=== PATIENT | male | born 1965 | race American Indian/Alaskan Native ===

== ENCOUNTER 2017-10-02 17:32 | Observation (INO) | payer SELFPAY ==
[2017-10-02] MEDS ORDERED: Sodium Chloride 0.9% 1,000 ML IV STA (18:10)
--- NOTE | 2017-10-02 18:30 | ED PDOC ---
HPI: General Adult Time Seen by Provider: 10/02/17 17:40 Chief Complaint (Nursing): Medical Clearance Chief Complaint (Provider): Medical Clearance History Per: Patient History/Exam Limitations: no limitations Onset/Duration Of Symptoms: Days (x1) Current Symptoms Are (Timing): Still Present Additional Complaint(s): 52 year old male with a past medical history of a cardiac stent brought to the ED for medical and psychiatric clearance for incarceration. Patient presents saying he felt dizziness and nausea x1 day. Denies fever, shortness of breath, or vomiting. PMD: None provided Past Medical History Reviewed: Historical Data, Nursing Documentation, Vital Signs Vital Signs: Last Vital Signs Temp 98.6 F 10/03/17 12:00 Pulse 76 10/03/17 12:00 Resp 18 10/03/17 12:00 BP 144/89 10/03/17 12:00 Pulse Ox 98 10/03/17 12:00 - Medical History PMH: Bipolar Disorder, HIV, HTN - Surgical History Surgical History: Coronary Stent - Family History Family History: States: Unknown Family Hx - Social History Current smoker - smoking cessation education provided: Yes Alcohol: Other ("a little bit") Drugs: Opiates (heroin daily) - Home Medications Home Medications: Ambulatory Orders Medication Instructions Recorded Aspirin [Aspirin Chewable] 81 mg PO DAILY #30 chew 10/03/17 Atorvastatin [Lipitor] 20 mg PO HS #30 tab 10/03/17 Clopidogrel [Plavix] 75 mg PO DAILY #30 tab 10/03/17 chlordiazePOXIDE [Librium] 10 mg PO Q6 #12 cap 10/03/17 cloNIDine [Catapres] 0.1 mg PO Q8 #30 tab 10/03/17 - Allergies Allergies/Adverse Reactions: Allergies Allergy/AdvReac Type Severity Reaction Status Date / Time No Known Allergies Allergy Verified 10/02/17 17:34 Review of Systems ROS Statement: Except As Marked, All Systems Reviewed And Found Negative Physical Exam - Physical Exam Appears: Positive for: Non-toxic, No Acute Distress Cardiovascular/Chest: Positive for: Regular Rate, Rhythm. Negative for: Murmur Respiratory: Positive for: Normal Breath Sounds. Negative for: Respiratory Distress Gastrointestinal/Abdominal: Positive for: Normal Exam, Bowel Sounds, Soft. Negative for: Tenderness - Laboratory Results Result Diagrams: 10/02/17 18:40 03/16/18 05:40 - ECG O2 Sat by Pulse Oximetry: 98 (RA) Pulse Ox Interpretation: Normal Medical Decision Making Medical Decision Making: Time: 18:09 Plan: --EKG --Labs --Psychiatric clearance Time: 19:00 Patient signed out to Dr. Cabral pending medical and psychiatric clearance. Scribe Attestation: Documented by Jayson Cuba, acting as a scribe for Mellissa Laws MD. Provider Scribe Attestation: All medical record entries made by the Scribe were at my direction and personally dictated by me. I have reviewed the chart and agree that the record accurately reflects my personal performance of the history, physical exam, medical decision making, and the department course for this patient. I have also personally directed, reviewed, and agree with the discharge instructions and disposition. Disposition - Clinical Impression Clinical Impression: Chest pain, Dizziness - Patient ED Disposition Is Patient to be Admitted: Transfer of Care Counseled Patient/Family Regarding: Studies Performed, Diagnosis - Disposition Disposition: Transfer of Care Disposition Time: 19:00 Condition: IMPROVED Patient Signed Over To: Ashok Cabral Handoff Comments: pending medical and psychiatric clearance
[2017-10-02 18:59] LABS: BASO % 1.6 % (0.0-2.0); EOS # 0.1 K/uL (0.0-0.7); EOS % 2.7 % (0.0-4.0); HEMOGLOBIN 15.3 g/dL (12.0-18.0); LYMPH # 1.1 K/uL (1.0-4.3); LYMPH % 48.1 % (20.0-40.0); MEAN CELL VOLUME 92.1 fl (80.0-94.0); MEAN CORPUSCULAR HEMOGLOBIN 30.6 pg (27.0-31.0); MEAN CORPUSCULAR HGB CONC 33.2 g/dL (33.0-37.0); MEAN PLATELET VOLUME 8.4 fl (7.2-11.7); MONO # 0.2 K/uL (0.0-0.8); MONO % 8.4 % (0.0-10.0); NEUT # 0.9 K/uL (1.8-7.0); NEUT % 39.2 % (50.0-75.0); NRBC % 0.6 % (0.0-0.0); RBC 5.02 Mil/uL (4.40-5.90); WHITE BLOOD COUNT 2.4 K/uL (4.8-10.8)
[2017-10-02 19:09] LABS: ALBUMIN 3.9 g/dL (3.5-5.0); ALT/SGPT 38 U/L (21-72); AST/SGOT 51 U/L (17-59); BLOOD UREA NITROGEN 12 mg/dl (9-20); CALCIUM 9.3 mg/dL (8.4-10.2); GFR AFRICAN-AMERICAN > 60; GFR NON-AFRICAN AMERICAN > 60
--- NOTE | 2017-10-02 19:19 | ED PDOC ---
- Laboratory Results Result Diagrams: 10/02/17 18:40 10/02/17 18:40 - ECG O2 Sat by Pulse Oximetry: 98 (RA) Medical Decision Making Medical Decision Making: Time: 19:00 Patient signed over to me by Dr. Laws pending medical and psychiatric evaluation. Time: 20:30 Workup negative, upon reassessment of patient, he is complaining of "a little" chest pain and shortness of breath. Patient admits that he is not taking his plavix or any of his medications because he cannot afford them. Given significant cardiac history and risk factors, will place in OBS for continuous cardiac monitoring, repeat biomarkers, and cardiology consultation as needed. Scribe Attestation: Documented by Jayson Cbua, acting as a scribe for Ashok Cabral MD. Provider Scribe Attestation: All medical record entries made by the Scribe were at my direction and personally dictated by me. I have reviewed the chart and agree that the record accurately reflects my personal performance of the history, physical exam, medical decision making, and the department course for this patient. I have also personally directed, reviewed, and agree with the discharge instructions and disposition. Disposition - Clinical Impression Clinical Impression: Chest pain, Dizziness - POA Present On Arrival: None - Disposition Disposition: Hospitalized as Observation Patient Disposition Time: 22:00 Condition: FAIR
--- NOTE | 2017-10-02 22:49 | CP.PCM.HP ---
History of Present Illness - History of Present Illness History of Present Illness: CC: chest pain HPI: 52 year old male PMH [place] 2 years ago with 2 stents at [facility], history of heroin and ETOH abuse, presents to ED for both medical and psychiatric clearance for incarceration. Patient complained of chest pain and feelings of shakiness. Patient describes chest pain as moderate to severe, "pushing-like" pain and likens pain to "when I had my heart attack", not associated with any other symptoms. He also complains of some dyspnea. At time of exam, patient appears extremely comfortable, with a flat affect, does not appear to be in any distress. No acute changes on EKG which demonstrated nonspecific t wave changes and bradycardia 49, however currently pt HR 70. HD stable NAD. ROS: per HPI all other systems reviewed and negative Present on Admission - Present on Admission Any Indicators Present on Admission: No Past Patient History - Past Social History Alcohol: Other ("a little bit") Drugs: Opiates (heroin daily) - CARDIAC Hx Hypertension: Yes - HEMATOLOGICAL/ONCOLOGICAL Hx Human Immunodeficiency Virus (HIV): Yes - PSYCHIATRIC Hx Bipolar Disorder: Yes - SURGICAL HISTORY Hx Coronary Stent: Yes Meds Allergies/Adverse Reactions: Allergies Allergy/AdvReac Type Severity Reaction Status Date / Time No Known Allergies Allergy Verified 10/02/17 17:34 Physical Exam - Constitutional Appears: Non-toxic, No Acute Distress - Head Exam Head Exam: ATRAUMATIC, NORMOCEPHALIC - Eye Exam Eye Exam: EOMI, Normal appearance, PERRL Pupil Exam: NORMAL ACCOMODATION - ENT Exam ENT Exam: Mucous Membranes Moist, Normal Oropharynx - Neck Exam Neck exam: Positive for: Full Rom, Normal Inspection - Respiratory Exam Respiratory Exam: Clear to Auscultation Bilateral, NORMAL BREATHING PATTERN - Cardiovascular Exam Cardiovascular Exam: RRR, +S1, +S2 - GI/Abdominal Exam GI & Abdominal Exam: Normal Bowel Sounds, Soft. absent: Mass, Tenderness - Extremities Exam Extremities exam: Positive for: normal capillary refill, pedal pulses present - Back Exam Back exam: absent: CVA tenderness (L), CVA tenderness (R) - Neurological Exam Neurological exam: Alert, Oriented x3 - Psychiatric Exam Psychiatric exam: Flat Affect, Normal Mood - Skin Skin Exam: Dry, Normal Color, Warm Results - Vital Signs Recent Vital Signs: Last Vital Signs Temp 98.0 F 10/02/17 17:34 Pulse 72 03/15/18 17:34 Resp 16 10/02/17 17:34 BP 167/97 H 10/02/17 21:44 Pulse Ox 98 10/02/17 19:19 - Labs Result Diagrams: 10/02/17 18:40 10/02/17 18:40 Labs: Laboratory Results - last 24 hr 10/02/17 10/02/17 10/02/17 18:40 18:40 20:37 WBC 2.4 L RBC 5.02 Hgb 15.3 Hct 46.2 MCV 92.1 MCH 30.6 MCHC 33.2 RDW 13.0 Plt Count 179 MPV 8.4 Neut % (Auto) 39.2 L Lymph % (Auto) 48.1 H [place] % (Auto) 8.4 Eos % (Auto) 2.7 Baso % (Auto) 1.6 Neut # (Auto) 0.9 L Lymph # (Auto) 1.1 [place] # (Auto) 0.2 Eos # (Auto) 0.1 Baso # (Auto) 0.0 Sodium 139 Potassium 3.5 L Chloride 102 Carbon Dioxide 26 Anion Gap 15 BUN 12 Creatinine 0.5 L Est GFR ( Amer) > 60 Est GFR (Non-Af Amer) > 60 Random Glucose 86 Calcium 9.3 Total Bilirubin 1.2 AST 51 ALT 38 Alkaline Phosphatase 71 Troponin I < 0.0120 Total Protein 7.9 Albumin 3.9 Globulin 4.0 H Albumin/Globulin Ratio 1.0 Alcohol, Quantitative < 10 Assessment & Plan - Assessment and Plan (Free Text) Plan: 52 year old male PMH [place] 2 years ago with 2 stents at [facility], history of heroin and ETOH abuse, presents to ED for both medical and psychiatric clearance for incarceration. Patient complained of chest pain and feelings of shakiness. Patient describes chest pain as moderate to severe, "pushing-like" pain and likens pain to "when I had my heart attack", not associated with any other symptoms. He also complains of some dyspnea. At time of exam, patient appears extremely comfortable, with a flat affect, does not appear to be in any distress. No acute changes on EKG which demonstrated nonspecific t wave changes and bradycardia 49, however currently pt HR 70. HD stable NAD. Chest Pain Repeat EKG in AM Trend enzymes, 1st neg, 2nd MN, 3rd 6AM Carvedilol [Coreg] 6.25 mg PO Q12 Clopidogrel [Plavix] 75 mg PO DAILY Aspirin 81 mg PO DAILY Atorvastatin [Lipitor] 20 mg PO HS History of Heroin and ETOH abuse last use yesterday, drinks 6 pack daily and uses appx 15 grams heroin daily Acetaminophen [Tylenol 325mg tab] 975 mg PO Q6 PRN Ondansetron [Zofran Inj] 4 mg IVP Q6 PRN Loperamide [Imodium] 2 mg PO QID PRN chlordiazePOXIDE [Librium] 10 mg PO Q8 Pantoprazole [Protonix EC Tab] 40 mg PO DAILY cloNIDine [Catapres] 0.1 mg PO Q12 Pending Incarceration Psych consult : Dr. Blas VTE ppx Enoxaparin [Lovenox] 40 mg SC DAILY
[2017-10-03 00:27] VITALS: RESP 18
[2017-10-03 06:16] LABS: BLOOD UREA NITROGEN 13 mg/dl (9-20); CALCIUM 9.1 mg/dL (8.4-10.2); GFR AFRICAN-AMERICAN > 60; GFR NON-AFRICAN AMERICAN > 60; HDL CHOLESTEROL 61 MG/DL (30-70)
[2017-10-03 06:27] LABS: LDL CHOLESTEROL 80 mg/dL (0-129)
[2017-10-03] MEDS ORDERED: Potassium Chloride 20 mEq ER Tab PO ONE (07:38)
--- NOTE | 2017-10-03 07:54 | RAD ---
HISTORY: medical clearance COMPARISON: No prior. FINDINGS: LUNGS: No acute infiltrate is identified bilaterally. There is a rounded density appreciate the mid lateral left lung zone overlying the plane of the anterior left 4th rib potentially representing a nipple shadow. True nodule is not excluded and follow-up nipple marked chest radiograph or chest CT without contrast is advised for additional characterization of the chest. No similar findings in the right chest. PLEURA: No significant pleural effusion identified, no pneumothorax apparent. CARDIOVASCULAR: Normal. OSSEOUS STRUCTURES: No significant abnormalities. VISUALIZED UPPER ABDOMEN: Normal. OTHER FINDINGS: None. IMPRESSION: Nodule versus nipple shadow in the left chest as discussed above. Follow-up nipple marked chest radiograph or noncontrast chest CT is advised for additional characterization. Examination is otherwise unremarkable. PA review assigned.
--- NOTE | 2017-10-03 08:07 | CP.PCM.CON ---
History of Present Illness - History of Present Illness History of Present Illness: 52 year old male PMH [place] 2 years ago with 2 stents at [facility] [place], history of heroin and ETOH abuse, presents to ED for both medical and psychiatric clearance for incarceration Pt claims he has had chest pain x 1 week The pain is @ upper Left chest pinpoint/sharp in nature reproducible with palpation no relation to exertion EKG: Sinus bradycardia Troponin: neg x 3. Past Patient History - Past Medical History & Family History Past Medical History?: Yes - Past Social History Smoking Status: Former Smoker - CARDIAC Hx Cardiac Disorders: Yes Hx Heart Attack: Yes (as per pt) Hx Hypertension: Yes - PULMONARY Hx Respiratory Disorders: No - NEUROLOGICAL Hx Neurological Disorder: No - HEENT Hx HEENT Problems: No - RENAL Hx Chronic Kidney Disease: No - ENDOCRINE/METABOLIC Hx Endocrine Disorders: No - HEMATOLOGICAL/ONCOLOGICAL Hx Blood Disorders: Yes Hx Human Immunodeficiency Virus (HIV): Yes - INTEGUMENTARY Hx Dermatological Problems: Yes Other/Comment: dry, scanny areas throughout the body - MUSCULOSKELETAL/RHEUMATOLOGICAL Hx Musculoskeletal Disorders: No Hx Falls: Yes - GASTROINTESTINAL Hx Gastrointestinal Disorders: No - GENITOURINARY/GYNECOLOGICAL Hx Genitourinary Disorders: No - PSYCHIATRIC Hx Psychophysiologic Disorder: Yes Hx Bipolar Disorder: Yes Hx Substance Use: Yes (heroin daily) - SURGICAL HISTORY Hx Coronary Stent: Yes (x2) - ANESTHESIA Hx Anesthesia: No Hx Anesthesia Reactions: No Hx Malignant Hyperthermia: No Has any member of the family had a problem w/ anesthesia?: No Meds Allergies/Adverse Reactions: Allergies Allergy/AdvReac Type Severity Reaction Status Date / Time No Known Allergies Allergy Verified 10/02/17 17:34 - Medications Medications: Current Medications Acetaminophen (Tylenol 325mg Tab) 975 mg PO Q6 PRN PRN Reason: Pain, moderate (4-7) Aspirin (Aspirin Chewable) 81 mg PO DAILY [facility] Atorvastatin Calcium (Lipitor) 20 mg PO HS [facility] Chlordiazepoxide (Librium) 10 mg PO Q8 [facility] Last Admin: 10/03/17 01:48 Dose: Not Given Clonidine HCl (Catapres) 0.1 mg PO Q8 [facility] Clopidogrel Bisulfate (Plavix) 75 mg PO DAILY [facility] Enoxaparin Sodium (Lovenox) 40 mg SC DAILY [facility] PRN Reason: Protocol Loperamide HCl (Imodium) 2 mg PO QID PRN PRN Reason: Diarrhea Ondansetron HCl (Zofran Inj) 4 mg IVP Q6 PRN PRN Reason: Nausea/Vomiting Pantoprazole Sodium (Protonix Ec Tab) 40 mg PO DAILY [facility] Physical Exam - Respiratory Exam Respiratory Exam: NORMAL BREATHING PATTERN - Cardiovascular Exam Cardiovascular Exam: REGULAR RHYTHM Results - Vital Signs Recent Vital Signs: Last Vital Signs Temp 97.5 F L 10/03/17 05:04 Pulse 55 L 10/03/17 05:04 Resp 18 10/03/17 05:04 BP 159/98 H 10/03/17 05:04 Pulse Ox 98 10/03/17 05:04 - Labs Result Diagrams: 10/02/17 18:40 10/03/17 05:40 Labs: Laboratory Results - last 24 hr 10/02/17 10/02/17 10/02/17 18:40 18:40 20:37 WBC 2.4 L RBC 5.02 Hgb 15.3 Hct 46.2 MCV 92.1 MCH 30.6 MCHC 33.2 RDW 13.0 Plt Count 179 MPV 8.4 Neut % (Auto) 39.2 L Lymph % (Auto) 48.1 H [place] % (Auto) 8.4 Eos % (Auto) 2.7 Baso % (Auto) 1.6 Neut # (Auto) 0.9 L Lymph # (Auto) 1.1 [place] # (Auto) 0.2 Eos # (Auto) 0.1 Baso # (Auto) 0.0 Sodium 139 Potassium 3.5 L Chloride 102 Carbon Dioxide 26 Anion Gap 15 BUN 12 Creatinine 0.5 L Est GFR ( Amer) > 60 Est GFR (Non-Af Amer) > 60 Random Glucose 86 Calcium 9.3 Total Bilirubin 1.2 AST 51 ALT 38 Alkaline Phosphatase 71 Troponin I < 0.0120 Total Protein 7.9 Albumin 3.9 Globulin 4.0 H Albumin/Globulin Ratio 1.0 Triglycerides Cholesterol LDL Cholesterol Direct HDL Cholesterol TSH 3rd Generation Alcohol, Quantitative < 10 10/03/17 10/03/17 00:23 05:40 WBC RBC Hgb Hct MCV MCH MCHC RDW Plt Count MPV Neut % (Auto) Lymph % (Auto) [place] % (Auto) Eos % (Auto) Baso % (Auto) Neut # (Auto) Lymph # (Auto) [place] # (Auto) Eos # (Auto) Baso # (Auto) Sodium 140 Potassium 3.5 L Chloride 103 Carbon Dioxide 26 Anion Gap 15 BUN 13 Creatinine 0.6 L Est GFR ( Amer) > 60 Est GFR (Non-Af Amer) > 60 Random Glucose 81 Calcium 9.1 Total Bilirubin AST ALT Alkaline Phosphatase Troponin I 0.0170 0.0140 Total Protein Albumin Globulin Albumin/Globulin Ratio Triglycerides 58 Cholesterol 167 LDL Cholesterol Direct 80 HDL Cholesterol 61 TSH 3rd Generation 0.07 L Alcohol, Quantitative Assessment & Plan (1) Chest pain Assessment and Plan: Non Cardiac chest pain pain is Musculoskeletal reproducible with palpation pt is cleared for discharge Status: Acute
[2017-10-03 08:41] LABS: T4 12.2 ug/dl (5.5-11.0)
[2017-10-03 08:55] LABS: T3 0.98 nmol/L (1.49-2.60)
[2017-10-03] MEDS ORDERED: Pantoprazole 40 mg EC Tab PO SCH (09:00)
[2017-10-03] MEDS ORDERED: Enoxaparin 40 mg Syringe SC SCH (09:00)
[2017-10-03 09:40] LABS: BARBITURATES, UR NEGATIVE (NEGATIVE); BENZODIAZEPINES, UR NEGATIVE (NEGATIVE); OPIATES, UR POSITIVE (NEGATIVE); PHENCYCLIDINE, UR NEGATIVE (NEGATIVE)
--- NOTE | 2017-10-03 10:36 | CARD ---
APPROVED REPORT EKG Measurement Heart [id number] <Conclusion> Sinus bradycardia with sinus arrhythmia Otherwise normal ECG
[2017-10-03 12:45] VITALS: BP 144/89; PULSE 76; TEMP 98.6; O2SAT 98
--- NOTE | 2017-10-03 13:42 | CP.PCM.CON ---
History of Present Illness - History of Present Illness History of Present Illness: PT IS 52 year old male PMH [place] 2 years ago with 2 stents at [facility], history of heroin and ETOH abuse, presents to ED for both medical and psychiatric clearance for incarceration. pt reported history of opiate use and alcohol use since age 31, he reported for past few months has been using about ten bags of heroin every other day, occasional alcohol use, pt currently not in any psychiatric treatment . homeless and unemployed he is under arrest for shop lifting pt reported feeling depressed because of his current financial problems and current legal problems, pt guarded and evasive in reference to his past psychiatric history , reported previous admissions to [facility] for intoxication, at current time pt reported depressed mood , pt denied any current suicidal or homicidal ideations denied perceptual disturbances,no reported changes in sleep or appetite last use of heroin is two days ago Past Patient History - Past Medical History & Family History Past Medical History?: Yes - Past Social History Smoking Status: Former Smoker - CARDIAC Hx Cardiac Disorders: Yes Hx Heart Attack: Yes (as per pt) Hx Hypertension: Yes - PULMONARY Hx Respiratory Disorders: No - NEUROLOGICAL Hx Neurological Disorder: No - HEENT Hx HEENT Problems: No - RENAL Hx Chronic Kidney Disease: No - ENDOCRINE/METABOLIC Hx Endocrine Disorders: No - HEMATOLOGICAL/ONCOLOGICAL Hx Blood Disorders: Yes Hx Human Immunodeficiency Virus (HIV): Yes - INTEGUMENTARY Hx Dermatological Problems: Yes Other/Comment: dry, scanny areas throughout the body - MUSCULOSKELETAL/RHEUMATOLOGICAL Hx Musculoskeletal Disorders: No Hx Falls: Yes - GASTROINTESTINAL Hx Gastrointestinal Disorders: No - GENITOURINARY/GYNECOLOGICAL Hx Genitourinary Disorders: No - PSYCHIATRIC Hx Psychophysiologic Disorder: Yes Hx Bipolar Disorder: Yes Hx Substance Use: Yes (heroin daily) - SURGICAL HISTORY Hx Coronary Stent: Yes (x2) - ANESTHESIA Hx Anesthesia: No Hx Anesthesia Reactions: No Hx Malignant Hyperthermia: No Has any member of the family had a problem w/ anesthesia?: No Meds Allergies/Adverse Reactions: Allergies Allergy/AdvReac Type Severity Reaction Status Date / Time No Known Allergies Allergy Verified 10/02/17 17:34 - Medications Medications: Current Medications Acetaminophen (Tylenol 325mg Tab) 975 mg PO Q6 PRN PRN Reason: Pain, moderate (4-7) Aspirin (Aspirin Chewable) 81 mg PO DAILY [facility] Last Admin: 10/03/17 10:41 Dose: 81 mg Atorvastatin Calcium (Lipitor) 20 mg PO HS [facility] Chlordiazepoxide (Librium) 10 mg PO Q8 [facility] Last Admin: 10/03/17 10:48 Dose: 10 mg Clonidine HCl (Catapres) 0.1 mg PO Q8 [facility] Last Admin: 10/03/17 10:41 Dose: 0.1 mg Clopidogrel Bisulfate (Plavix) 75 mg PO DAILY [facility] Last Admin: 10/03/17 10:43 Dose: 75 mg Enoxaparin Sodium (Lovenox) 40 mg SC DAILY [facility] PRN Reason: Protocol Last Admin: 10/03/17 10:42 Dose: 40 mg Loperamide HCl (Imodium) 2 mg PO QID PRN PRN Reason: Diarrhea Ondansetron HCl (Zofran Inj) 4 mg IVP Q6 PRN PRN Reason: Nausea/Vomiting Pantoprazole Sodium (Protonix Ec Tab) 40 mg PO DAILY [facility] Last Admin: 10/03/17 10:43 Dose: 40 mg Physical Exam - Psychiatric Exam Additional comments: pt seen in bed, partia eye contact unkempt, speech underproductive, reported mood depressed, flat affect, thought form coherent, denied perceptual disturbances, non elicited , pt at current mental status denied any current suicidal ideations or plan denied homicidal ideations alert awake oriented to person and place Results - Vital Signs Recent Vital Signs: Last Vital Signs Temp 98.6 F 10/03/17 12:00 Pulse 76 10/03/17 12:00 Resp 18 10/03/17 12:00 BP 144/89 10/03/17 12:00 Pulse Ox 98 10/03/17 12:00 - Labs Result Diagrams: 10/02/17 18:40 10/03/17 05:40 Labs: Laboratory Results - last 24 hr 10/02/17 10/02/17 10/02/17 18:40 18:40 20:37 WBC 2.4 L RBC 5.02 Hgb 15.3 Hct 46.2 MCV 92.1 MCH 30.6 MCHC 33.2 RDW 13.0 Plt Count 179 MPV 8.4 Neut % (Auto) 39.2 L Lymph % (Auto) 48.1 H [place] % (Auto) 8.4 Eos % (Auto) 2.7 Baso % (Auto) 1.6 Neut # (Auto) 0.9 L Lymph # (Auto) 1.1 [place] # (Auto) 0.2 Eos # (Auto) 0.1 Baso # (Auto) 0.0 Sodium 139 Potassium 3.5 L Chloride 102 Carbon Dioxide 26 Anion Gap 15 BUN 12 Creatinine 0.5 L Est GFR ( Amer) > 60 Est GFR (Non-Af Amer) > 60 Random Glucose 86 Calcium 9.3 Total Bilirubin 1.2 AST 51 ALT 38 Alkaline Phosphatase 71 Troponin I < 0.0120 Total Protein 7.9 Albumin 3.9 Globulin 4.0 H Albumin/Globulin Ratio 1.0 Triglycerides Cholesterol LDL Cholesterol Direct HDL Cholesterol Thyroxine (T4) Total T3 TSH 3rd Generation Urine Opiates Screen Urine Methadone Screen Ur Barbiturates Screen Ur Phencyclidine Scrn Ur Amphetamines Screen U Benzodiazepines Scrn U Oth Cocaine Metabols U Cannabinoids Screen Alcohol, Quantitative < 10 10/03/17 10/03/17 10/03/17 00:23 05:40 08:09 WBC RBC Hgb Hct MCV MCH MCHC RDW Plt Count MPV Neut % (Auto) Lymph % (Auto) [place] % (Auto) Eos % (Auto) Baso % (Auto) Neut # (Auto) Lymph # (Auto) [place] # (Auto) Eos # (Auto) Baso # (Auto) Sodium 140 Potassium 3.5 L Chloride 103 Carbon Dioxide 26 Anion Gap 15 BUN 13 Creatinine 0.6 L Est GFR ( Amer) > 60 Est GFR (Non-Af Amer) > 60 Random Glucose 81 Calcium 9.1 Total Bilirubin AST ALT Alkaline Phosphatase Troponin I 0.0170 0.0140 Total Protein Albumin Globulin Albumin/Globulin Ratio Triglycerides 58 Cholesterol 167 LDL Cholesterol Direct 80 HDL Cholesterol 61 Thyroxine (T4) 12.2 H Total T3 0.980 L TSH 3rd Generation 0.07 L Urine Opiates Screen Urine Methadone Screen Ur Barbiturates Screen Ur Phencyclidine Scrn Ur Amphetamines Screen U Benzodiazepines Scrn U Oth Cocaine Metabols U Cannabinoids Screen Alcohol, Quantitative 10/03/17 09:14 WBC RBC Hgb Hct MCV MCH MCHC RDW Plt Count MPV Neut % (Auto) Lymph % (Auto) [place] % (Auto) Eos % (Auto) Baso % (Auto) Neut # (Auto) Lymph # (Auto) [place] # (Auto) Eos # (Auto) Baso # (Auto) Sodium Potassium Chloride Carbon Dioxide Anion Gap BUN Creatinine Est GFR ( Amer) Est GFR (Non-Af Amer) Random Glucose Calcium Total Bilirubin AST ALT Alkaline Phosphatase Troponin I Total Protein Albumin Globulin Albumin/Globulin Ratio Triglycerides Cholesterol LDL Cholesterol Direct HDL Cholesterol Thyroxine (T4) Total T3 TSH 3rd Generation Urine Opiates Screen Positive H Urine Methadone Screen Negative Ur Barbiturates Screen Negative Ur Phencyclidine Scrn Negative Ur Amphetamines Screen Negative U Benzodiazepines Scrn Negative U Oth Cocaine Metabols Positive H U Cannabinoids Screen Negative Alcohol, Quantitative Assessment & Plan - Assessment and Plan (Free Text) Plan: continue with clonidine protocol and monitor for symtoms and signs of opiate withdrawal pt at current mental status denied suicidal or homicidal ideations denied perceptual disturbances pt at current mental status not danger to self or others pt psychiatricaly cleared top be released to police custody upon medical clearence
--- NOTE | 2017-10-03 14:08 | RAD ---
HISTORY: rpt CXR , mayra nipple to r/o nodule COMPARISON: Frontal chest radiograph 10/02/2017. FINDINGS: LUNGS: No active pulmonary disease. Radiodense marker placed at the nipple a nipple as correspond to the same density seen in the prior chest radiograph 10/02/2013 overlying the left 4th rib once again. PLEURA: No significant pleural effusion identified, no pneumothorax apparent. CARDIOVASCULAR: Normal. OSSEOUS STRUCTURES: No significant abnormalities. VISUALIZED UPPER ABDOMEN: Normal. OTHER FINDINGS: None. IMPRESSION: No acute cardiopulmonary is appreciable. Left-sided chest density corresponds to left nipple as described above. No definite nodule demonstrated.
--- NOTE | 2017-10-03 14:22 | CP.PCM.DIS ---
Provider - Provider Date of Admission: 10/02/17 22:00 Attending physician: Luz Elena Paul DO Consults: Psych: Dr Blas Cardio: DR Harrison Time Spent in preparation of Discharge (in minutes): 35 Diagnosis - Discharge Diagnosis (1) Chest pain Status: Acute (2) Polysubstance abuse Status: Acute (3) HTN (hypertension) Status: Chronic (4) CAD (coronary artery disease) Status: Chronic Hospital Course - Lab Results Lab Results: Most Recent Lab Values WBC 2.4 K/uL (4.8-10.8) L 10/02/17 18:40 RBC 5.02 Mil/uL (4.40-5.90) 10/02/17 18:40 Hgb 15.3 g/dL (12.0-18.0) 10/02/17 18:40 Hct 46.2 % (35.0-51.0) 10/02/17 18:40 MCV 92.1 fl (80.0-94.0) 10/02/17 18:40 MCH 30.6 pg (27.0-31.0) 10/02/17 18:40 MCHC 33.2 g/dL (33.0-37.0) 10/02/17 18:40 RDW 13.0 % (11.5-14.5) 10/02/17 18:40 Plt Count 179 K/uL (130-400) 10/02/17 18:40 MPV 8.4 fl (7.2-11.7) 10/02/17 18:40 Neut % (Auto) 39.2 % (50.0-75.0) L 10/02/17 18:40 Lymph % (Auto) 48.1 % (20.0-40.0) H 10/02/17 18:40 Quay % (Auto) 8.4 % (0.0-10.0) 10/02/17 18:40 Eos % (Auto) 2.7 % (0.0-4.0) 10/02/17 18:40 Baso % (Auto) 1.6 % (0.0-2.0) 10/02/17 18:40 Neut # (Auto) 0.9 K/uL (1.8-7.0) L 10/02/17 18:40 Lymph # (Auto) 1.1 K/uL (1.0-4.3) 10/02/17 18:40 Quay # (Auto) 0.2 K/uL (0.0-0.8) 10/02/17 18:40 Eos # (Auto) 0.1 K/uL (0.0-0.7) 10/02/17 18:40 Baso # (Auto) 0.0 K/uL (0.0-0.2) 10/02/17 18:40 Sodium 140 mmol/l (132-148) 10/03/17 05:40 Potassium 3.5 MMOL/L (3.6-5.0) L 10/03/17 05:40 Chloride 103 mmol/L (98-107) 10/03/17 05:40 Carbon Dioxide 26 mmol/L (22-30) 10/03/17 05:40 Anion Gap 15 (10-20) 10/03/17 05:40 BUN 13 mg/dl (9-20) 10/03/17 05:40 Creatinine 0.6 mg/dl (0.8-1.5) L 10/03/17 05:40 Est GFR ( Amer) > 60 10/03/17 05:40 Est GFR (Non-Af Amer) > 60 10/03/17 05:40 Random Glucose 81 mg/dL (75-110) 10/03/17 05:40 Calcium 9.1 mg/dL (8.4-10.2) 10/03/17 05:40 Total Bilirubin 1.2 mg/dl (0.2-1.3) 10/02/17 18:40 AST 51 U/L (17-59) 10/02/17 18:40 ALT 38 U/L (21-72) 10/02/17 18:40 Alkaline Phosphatase 71 U/L (38-126) 10/02/17 18:40 Troponin I 0.0140 ng/mL (0.00-0.120) 10/03/17 05:40 Total Protein 7.9 G/DL (6.3-8.2) 10/02/17 18:40 Albumin 3.9 g/dL (3.5-5.0) 10/02/17 18:40 Globulin 4.0 gm/dL (2.2-3.9) H 10/02/17 18:40 Albumin/Globulin Ratio 1.0 (1.0-2.1) 10/02/17 18:40 Triglycerides 58 mg/DL (0-149) 10/03/17 05:40 Cholesterol 167 mg/dL (0-199) 10/03/17 05:40 LDL Cholesterol Direct 80 mg/dL (0-129) 10/03/17 05:40 HDL Cholesterol 61 MG/DL (30-70) 10/03/17 05:40 Thyroxine (T4) 12.2 ug/dl (5.5-11.0) H 10/03/17 08:09 Total T3 0.980 nmol/L (1.49-2.60) L 10/03/17 08:09 TSH 3rd Generation 0.07 mIU/ML (0.46-4.68) L 10/03/17 05:40 Urine Opiates Screen Positive (NEGATIVE) H 10/03/17 09:14 Urine Methadone Screen Negative (NEGATIVE) 10/03/17 09:14 Ur Barbiturates Screen Negative (NEGATIVE) 10/03/17 09:14 Ur Phencyclidine Scrn Negative (NEGATIVE) 10/03/17 09:14 Ur Amphetamines Screen Negative (NEGATIVE) 10/03/17 09:14 U Benzodiazepines Scrn Negative (NEGATIVE) 10/03/17 09:14 U Oth Cocaine Metabols Positive (NEGATIVE) H 10/03/17 09:14 U Cannabinoids Screen Negative (NEGATIVE) 10/03/17 09:14 Alcohol, Quantitative < 10 mg/dl (0-10) 10/02/17 20:37 - Hospital Course Hospital Course: 52 year old male PMH HTN and DE 2 years ago s/p PCI [address] [place] [facility] [place] history of heroin and ETOH abuse, presented to ED for both medical and psychiatric clearance for incarceration. Patient complained of chest pain and feelings of shakiness. EKG showed no acute ST T changes. Troponin x 3 negative. CXR : negative. His CP was reproducible. Pt did not manifest any signs and sxs of Alcohol nor Opiate withdrawal. No diarrhea, though he was hyp[ertensive , no tachhycardia, no pupillary dilatation , no piloerection. Cardiology and Psychiatry were consulted Pt was cleared from Cardio and Psych standpoint. Atypical Chest Pain, prob musculoskeletal , ACS ruled out History of CAD s/p Stent - Trop x 3 negative - Cardio cleared pt - cont ASA, Plavix, statin - no BB bec pt was + for Cocaine HTN uncontrolled cont Clonidine Polysubstance Abuse - (+ for Cocaine and Opiates on Drug Screen) History of Alcohol Abuse - no signs nor sxs of active withdrawal - pt was started on IVF, Librium, Clonidine, Thiamine Low TSH - T4 sl elevated at 12.2, T3 low - discussed case with Dr Daily - no tx, she states this is common in drug abuse- rec to rpt TFT in 3 mos VTE ppx Enoxaparin [Lovenox] 40 mg SC DAILY Discharge Exam - Head Exam Head Exam: ATRAUMATIC, NORMAL INSPECTION, NORMOCEPHALIC - Eye Exam Eye Exam: EOMI, Normal appearance, PERRL Pupil Exam: NORMAL ACCOMODATION - ENT Exam ENT Exam: Mucous Membranes Moist, Normal External Ear Exam - Neck Exam Neck exam: Full Rom - Respiratory Exam Respiratory Exam: NORMAL BREATHING PATTERN. absent: Respiratory Distress - Cardiovascular Exam Cardiovascular Exam: REGULAR RHYTHM, +S1, +S2 - GI/Abdominal Exam GI & Abdominal Exam: Normal Bowel Sounds, Soft. absent: Tenderness - Extremities Exam Extremities exam: full ROM, normal capillary refill, pedal pulses present - Back Exam Back exam: FULL ROM. absent: CVA tenderness (L), CVA tenderness (R) - Neurological Exam Neurological exam: Alert, CN II-XII Intact, Oriented x3, Reflexes Normal - Psychiatric Exam Psychiatric exam: Flat Affect - Skin Skin Exam: Dry, Normal Color, Warm Discharge Plan - Discharge Medications Prescriptions: Aspirin [Aspirin Chewable] 81 mg PO DAILY #30 chew Atorvastatin [Lipitor] 20 mg PO HS #30 tab chlordiazePOXIDE [Librium] 10 mg PO Q6 #12 cap cloNIDine [Catapres] 0.1 mg PO Q8 #30 tab Clopidogrel [Plavix] 75 mg PO DAILY #30 tab - Follow Up Plan Condition: GOOD Disposition: RELEASED IN [facility] Instructions: Chest Pain (DC), General (DC) Additional Instructions: d/c pt to Police [facility]ustody - cleared by Cardio and Psych
== END 2017-10-03 15:10 ==
LOC: H.ER 17:32 → H.ERHOLD 22:00 → H.TEL 10-03 01:45
PROVIDERS: ADMIT Student in an Organized Health Care Education/Training Program; ATTEND Student in an Organized Health Care Education/Training Program
DX: R07.89 Other chest pain (principal); F11.10 Opioid abuse, uncomplicated; F31.9 Bipolar disorder, unspecified; I10 Essential (primary) hypertension; I25.2 Old myocardial infarction; Z95.5 Presence of coronary angioplasty implant and graft; F17.200 Nicotine dependence, unspecified, uncomplicated; I25.10 Atherosclerotic heart disease of native coronary artery without angina pectoris; F14.10 Cocaine abuse, uncomplicated; Z21 Asymptomatic human immunodeficiency virus [HIV] infection status; R00.1 Bradycardia, unspecified; Z59.0 Homelessness
CPT/HCPCS: 71045; 80048; 80053; 80061; 84436; 84443; 84480; 84484; 85025; 93005; 99282; G0378; G0480; J1650; J2405; J7040